=== PATIENT | male | born 1990 | race Two or more races ===

== ENCOUNTER 2024-12-28 04:29 | Emergency (ER) | payer BC, OTHER, SELFPAY ==
[2024-12-28 04:30] VITALS: BMI 29.8
[2024-12-28 04:39] VITALS: BP 134/92; PULSE 79; RESP 19; TEMP 36.6; O2SAT 98
--- NOTE | 2024-12-28 04:51 | EDNOTE_ITS ---
ED Ear RME/HPI General Chief complaint: Ear Stated complaint: BUG IN LEFT EAR Time Seen by Provider: 12/28/24 04:48 Source: patient, RN notes reviewed and old records reviewed Arrival date/time: 12/28/24 04:29 Mode of arrival: ambulatory Limitations: no limitations RME / HPI RME / HPI Narrative: 34yom presents to ED for bug in left ear. Patient states he woke up in middle of night and felt something moving in left ear. Patient put peroxide in ear prior to arrival, no changes in symptoms. Denies ear pain. Related Data Previous Rx's ?Medication ?Instructions ?Recorded naproxen 500 mg tablet 500 mg PO BID #30 tabs 08/22 ibuprofen 600 mg tablet 600 mg PO Q6H PRN pain #30 t abs 12/29/23 methylprednisolone 4 mg tablets in 4 mg PO QAM #21 tab s 12/29/23 a dose pack (Medrol (Rogelio)) Allergies Allergy/AdvReac Type Severity Reaction Status Date / Time No Known Allergies Allergy Verified 12/29/23 03:25 Review of Systems Review of Systems Systems Reviewed: All systems reviewed, normal except as documented ENT Ears, Nose, Mouth, and Throat: Denies otalgia Past Medical History Past Medical History MUSCULOSKELETAL: Positive Gout Surgical History OTHER SURGICAL HX: denies pshx Social History SMOKING STATUS: Never smoker SUBSTANCE USE: does not use ALCOHOL: Never ED Exam General Limitations: Present no limitations General appearance: Present alert and in no apparent distress Head Head exam: Present atraumatic and normocephalic Eye Eye exam: Present normal appearance, PERRL and EOMI ENT ENT exam: Present mucous membranes moist and other (bug in left ear) Neck Neck exam: Present normal inspection and full ROM Chest Chest inspection: Present normal inspection and symmetric chest wall rise Respiratory Respiratory exam: Present normal lung sounds bilaterally; Absent respiratory distress Cardiovascular Cardiovascular exam: Present regular rate and normal rhythm Extremities Exam Extremities exam: Present normal inspection and full ROM Neurological Exam Neurological exam: Present alert and oriented X3 Psychiatric Psychiatric exam: Present normal affect and normal mood Skin Skin exam: Present warm, dry, intact and normal color Course Quality Measures none Vital Signs Vital signs: Vital Signs Temperature 97.9 F 12/28/24 04:39 Pulse Rate 79 12/28/24 04:39 Respiratory Rate 19 12/28/24 04:39 Blood Pressure 134/92 H 12/28/24 04:39 Pulse Oximetry (%) 98 12/28/24 04:39 Oxygen Delivery Method Room Air 12/28/24 04:39 Ear MDM Narrative MDM Narrative:: 34yom presents to ED for bug in left ear. Patient states he woke up in middle of night and felt something moving in left ear. Patient put peroxide in ear prior to arrival, no changes in symptoms. Denies ear pain. Insect successfully removed from left ear with irrigation and manual removal. Stable for discharge, RTED precautions given. Patient data External records reviewed:: [facility] previous records (12/29/23 ED visit for gout flare) Clinical information provided by:: patient Social determinants that could affect healthcare access:: none Patient has the following chronic illnesses:: gout How is presenting disease/condition affected by chronic disease/condition?: uneffected by Evaluation data The following diagnostics were reviewed and interpreted by me:: other (specify) (none) Lab and/or radiology exams considered but not ordered:: none Interpretation Summary: na Medications / Prescriptions Medications or Prescriptions considered but not ordered:: no antibiotics recommended at this time Medication administrations:: none Consultations Consultation(s) initiated? (list below): No Diagnosis Ear Differential Diagnosis: otitis externa, otitis media, foreign body in ear, ruptured TM and cerumen impaction Most likely diagnosis given after review of the tests above:: FB left ear Admission Indicated Admission indicated?: not indicated Admission Request Was there a request for admission?: No Disposition Plan Disposition Plan: Discharge Discharge Attestation Discharge Attestation: The patient and all family members were given an opportunity to ask questions and understood the discharge instructions. Discharge instructions specifically effects, indications for sooner follow up or return to the emergency department, and the expected course of current diagnosis. Patient condition: Stable Discharge Plan Plan Patient Disposition: HOME (Self Care) Patient condition on transfer: Stable Prescriptions/Referrals Prescriptions/Med Rec: No Action naproxen 500 mg tablet 500 mg PO BID Qty: 30 0RF ibuprofen 600 mg tablet 600 mg PO Q6H PRN (Reason: pain) Qty: 30 0RF methylprednisolone [Medrol (Rogelio)] 4 mg tablets,dose pack 4 mg PO QAM Qty: 21 0RF Rx Instructions: Use as directed Referrals: Kody Palmer [Primary Care Provider] - In 1 week Problem List Clinical Impression: Foreign body of left ear Patient/Caregiver Discharge Instructions Print Language: Tuvaluan Stand Alone Forms: Jazz Award Info., Patient Portal Info Letter PA/FIELD SERVICE COORDINATOR Supervising Physician PA/FIELD SERVICE COORDINATOR Supervising Physician: Curly
== END 2024-12-28 05:28 | disposition home or self-care (01) ==
PROVIDERS: Emergency Provider Emergency Medicine; PCP Internal Medicine Endocrinology, Diabetes & Metabolism
DX: T16.2XXA Foreign body in left ear, initial encounter (principal); W44.F4XA Insect entering into or through a natural orifice, initial encounter
CPT/HCPCS: 69200; 99283